=== PATIENT | female | born 1980 | race Caucasian/White ===

== ENCOUNTER 2019-12-31 11:04 | Emergency (ER) | payer MEDICAID ==
[~2019-12-31] VITALS: Ht 165.1 cm; Wt 106.6 kg
--- NOTE | 2019-12-31 11:10 | NUR ---
PT TO ER BED 6
[2019-12-31 11:19] VITALS: BP 134/78
[2019-12-31] MEDS ORDERED: SODIUM CHLORIDE FLUSH 10 ML SYR IVF STA (11:25)
--- NOTE | 2019-12-31 11:37 | NUR ---
39 Y/O FEMALE C/O UPPER ABD PAIN AND DIARRHEA SINCE 399 TODAY. DENIES N/V. 07/22 "TWISTING" PAIN TO ABD. STATES PAIN RADIATES TO MID BACK. HAS NOT TAKEN ANY MEDICATIONS FOR PAIN. ABD SOFT, ROUND, NONTENDER TO PALP. SITTING UPRIGHT IN BED, TEARFUL. RR EVEN AND UNLABORED. AT BEDSIDE MEDHX: DENIES ALLERGIES: PCN
--- NOTE | 2019-12-31 11:39 | NUR ---
LAB AT BEDSIDE
[2019-12-31 11:50] LABS: BASOPHILS # (AUTO) 0.1 K/uL (0.00-0.22); BASOPHILS % (AUTO) 0.9 % (0.0-2.0); EOSINOPHILS # (AUTO) 0.2 K/uL (0-0.4); EOSINOPHILS % (AUTO) 1.3 % (0.0-4.0); HEMATOCRIT 41.9 % (36-48); HEMOGLOBIN 13.8 g/dL (12.0-16.0); LYMPHOCYTES # (AUTO) 1.5 K/uL (2.5-16.5); LYMPHOCYTES % (AUTO) 10.1 % (20.5-51.1); MEAN CORPUSCULAR HEMOGLOBIN 28 pg (27-31); MEAN CORPUSCULAR HGB CONC 33 g/dL (33-37); MEAN CORPUSCULAR VOLUME 83.2 fL (80-94); MONOCYTES # (AUTO) 0.6 K/uL (0.8-1.0); MONOCYTES % (AUTO) 3.8 % (1.7-9.3); NEUTROPHILS # (AUTO) 12.2 K/uL (1.8-7.7); NEUTROPHILS % (AUTO) 83.9 % (42.2-75.2); PLATELET COUNT (AUTO) 248 K/uL (140-450); RED BLOOD CELL COUNT(AUTO) 5.04 MIL/uL (4.20-5.40); RED CELL DISTRIBUTION WIDTH 13.8 % (11.6-13.7); WHITE BLOOD COUNT (AUTO) 14.5 K/uL (4.8-10.8)
[2019-12-31 11:51] LABS: BILIRUBIN,URINE NEGATIVE (NEGATIVE); BLOOD, URINE 1+ (NEGATIVE); COLOR,URINE DARK YELLOW (YELLOW); LEUKOCYTE ESTERASE ,URINE NEGATIVE (NEGATIVE); NITRITE, URINE NEGATIVE (NEGATIVE); UGLUCOSE NEGATIVE (NEGATIVE)
[2019-12-31] MEDS ORDERED: MORPHINE SULFATE 4 MG/ML SYR IVP ONE (12:15)
[2019-12-31] MEDS ORDERED: NACL 0.9% 1,000 ML IV ONE (12:15)
[2019-12-31] MEDS ORDERED: ONDANSETRON 4 MG/2 ML VIAL IVP ONE (12:15)
[2019-12-31 12:21] LABS: ALBUMIN 3.8 g/dL (3.4-5.0); ANION GAP 16.7 (8-16); CARBON DIOXIDE 24.4 mmol/L (21-32); CREATININE 0.9 mg/dL (0.6-1.3); POTASSIUM 4.1 mmol/L (3.5-5.1); TOTAL BILIRUBIN 0.4 mg/dL (0.0-1.0)
--- NOTE | 2019-12-31 12:30 | NUR ---
PT TO CT VIA SON[facility]
[2019-12-31 12:42] LABS: APPEARANCE,URINE CLEAR (CLEAR)
[2019-12-31 12:43] LABS: RBC,URINE 0-5 /HPF (0-5); WBC,URINE 0-5 /HPF (0-5)
--- NOTE | 2019-12-31 13:07 | NUR ---
RESTING WITH EYES CLOSED, AROUSABLE TO VOICE. STATES DECREASE IN PAIN, DENIES NAUSEA
[2019-12-31] MEDS ORDERED: ACETAMINOPHEN 325 MG TAB PO ONE (14:00)
[2019-12-31 14:14] VITALS: BP 132/81
--- NOTE | 2019-12-31 14:15 | NUR ---
Patient discharged with v/s stable. Written and verbal after care instructions given and explained. Patient alert, oriented and verbalized understanding of instructions. with steady gait. All questions addressed prior to discharge. ID band removed. Patient advised to follow up with PMD. Rx of BENTYL, NORCO, AND ZOFRAN given. Patient educated on indication of medication including possible reaction and side effects. Opportunity to ask questions provided and answered.
== END 2019-12-31 14:15 | disposition home or self-care (01) ==
LOC: MED 11:04
DX: R19.7 Diarrhea, unspecified (principal); R10.10 Upper abdominal pain, unspecified; D72.829 Elevated white blood cell count, unspecified; Z90.49 Acquired absence of other specified parts of digestive tract; Z98.890 Other specified postprocedural states; Z88.0 Allergy status to penicillin
CPT/HCPCS: 36415; 74176; 80053; 81001; 81025; 83690; 85025; 96361; 96374; 96375; 99284; J2270; J2405; J7030